=== PATIENT | female | born 1980 | race Caucasian/White ===

== ENCOUNTER 2017-08-13 18:58 | Emergency (ER) | payer BC, OTHER ==
[2017-08-13] MEDS ORDERED: methylPREDNISolone Sodium Succinate 125 MG/2 ML SDV IM ONE (19:15)
--- NOTE | 2017-08-13 19:38 | EDM.PDOC ---
ED HPI GENERAL MEDICAL PROBLEM - General Chief Complaint: Allergic Reaction Stated Complaint: ALLERGIC REACTION Time Seen by Provider: 08/13/17 19:11 Source of Information: Reports: Patient History Limitations: Reports: No Limitations - History of Present Illness INITIAL COMMENTS - FREE TEXT/NARRATIVE: HISTORY AND PHYSICAL: History of present illness: Patient is a 36-year-old female who presents to the emergency room today with complaints of an allergic reaction. She states earlier this morning she was informed that her face appeared red and swollen, upon looking in the mirror she noticed blotches/hives to her neck and lower face. She applied topical hydrocortisone cream which seemed to alleviate her symptoms. Especially 2 hours ago she started to feel the "hives coming back". And did take oral Benadryl. She does not recall coming into contact with any new materials, medications, creams/lotions or detergents. Review of systems: As per history of present illness and below otherwise all systems reviewed and negative. Past medical history: As per history of present illness and as reviewed below otherwise noncontributory. Surgical history: As per history of present illness and as reviewed below otherwise noncontributory. Social history: No reported history of drug or alcohol abuse. Family history: As per history of present illness and as reviewed below otherwise noncontributory. Physical exam: General: Well-developed and well-nourished 36-year-old female. Alert and oriented. Nontoxic appearing and in no acute distress. HEENT: Atraumatic, normocephalic, pupils equal and reactive bilaterally, negative for conjunctival pallor or scleral icterus, mucous membranes moist, throat clear, neck supple, nontender, trachea midline. No drooling or trismus noted. No meningeal signs Lungs: Clear to auscultation, breath sounds equal bilaterally, chest nontender. Heart: S1S2, regular rate and rhythm without overt murmur Abdomen: Soft, nondistended, nontender. Negative for masses or hepatosplenomegaly. Negative for costovertebral tenderness. Pelvis: Stable nontender. Genitourinary: Deferred. Rectal: Deferred. Skin: Intact, warm, dry. No lesions or rashes noted. Extremities: Atraumatic, negative for cords or calf pain. Neurovascular unremarkable. Neuro: Awake, alert, oriented. Cranial nerves II through XII unremarkable. Cerebellum unremarkable. Motor and sensory unremarkable throughout. Exam nonfocal. Notes: Currently her physical evaluation appears normal. There are no hives noted at this time. Lung sounds are clear and breathes easy and even. She does mention a pain that she has to her right phelps which she states started at approximately the same time her hives started this morning. She questions if there is any correlation between her phelps pain and the allergic reaction. We did discuss doing routine lab work to make sure that there is no abnormal values. She does request that these be performed. Solu-Medrol given IM while here and while waiting for labs to return. Medrol Dosepak Diagnostics: CBC, CMP Therapeutics: SoluMedrol Impression: Hives Plan: 1. Please take the steroid as directed. You may start this medication tomorrow. 2. Over the next 24-48 hours please take Benadryl and Zantac as directed. 3. Avoid hot showers as this may increase redness and itching. 4. Follow-up with your primary caregiver in the next 1-2 days. Return to the ED as needed and as discussed. Definitive disposition and diagnosis as appropriate pending reevaluation and review of above. Onset: Today Duration: Hour(s): Location: Reports: Head, Neck Head Pain Score (Numeric/FACES): 5 - Related Data Allergies Allergy/AdvReac Type Severity Reaction Status Date / Time sulfacetamide sodium Allergy Hives Verified 08/13/17 19:03 [From Sulfamide] Home Meds: Home Meds Levothyroxine 0.125 mcg PO DAILY 04/19/14 [History] Bcp 08/13/17 [History] Sertraline [Zoloft] 50 mg PO DAILY 08/13/17 [History] Past Medical History - Past Health History Medical/Surgical History: Denies Medical/Surgical History HEENT History: Reports: None Cardiovascular History: Reports: None Respiratory History: Reports: None Gastrointestinal History: Reports: None Genitourinary History: Reports: Renal Calculus SURVEY 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: Musculoskeletal History: Reports: None Neurological History: Reports: None Psychiatric History: Reports: Depression Endocrine/Metabolic History: Reports: Hypothyroidism Hematologic History: Reports: None Immunologic History: Reports: None Oncologic (Cancer) History: Reports: None Dermatologic History: Reports: None - Infectious Disease History Infectious Disease History: Reports: None - Past Surgical History HEENT Surgical History: Reports: Other (See Below) GI Surgical History: Reports: Other (See Below) Female Surgical History: Reports: Ureteral Stent, Other (See Below) Social & Family History - Family History Family Medical History: Noncontributory - Tobacco Use Smoking Status *Q: Never Smoker - Caffeine Use Caffeine Use: Reports: None - Recreational Drug Use Recreational Drug Use: No ED ROS ALLERGIC REACTION - Review of Systems Review Of Systems: ROS reveals no pertinent complaints other than HPI. ED EXAM GENERAL NO PERIP PULSE - Physical Exam Exam: See Below (See dictation) Course - Vital Signs Last Recorded V/S: Last Vital Signs Temp 97.6 F 08/13/17 19:06 Pulse 104 H 08/13/17 19:06 Resp 16 08/13/17 19:06 BP 142/90 H 08/13/17 19:06 Pulse Ox 97 08/13/17 19:06 - Orders/Labs/Meds Orders: Active Orders 24 hr Category Date Time Status COMPREHENSIVE METABOLIC PN,CMP [CHEM] Stat Lab 08/13/17 19:36 Received Labs: Laboratory Tests 08/13/17 Range/Units 19:36 WBC 7.90 (4.0-11.0) K/uL RBC 4.34 (4.30-5.90) M/uL Hgb 13.4 (12.0-16.0) g/dL Hct 39.7 (36.0-46.0) % MCV 91.5 (80.0-98.0) fL MCH 30.9 (27.0-32.0) pg MCHC 33.8 (31.0-37.0) g/dL RDW Std Deviation 42.8 (28.0-62.0) fl RDW Coeff of Carlitos 13 (11.0-15.0) % Plt Count 298 (150-400) K/uL MPV 10.40 (7.40-12.00) fL Neut % (Auto) 66.1 (48.0-80.0) % Lymph % (Auto) 24.3 (16.0-40.0) % [place] % (Auto) 7.2 (0.0-15.0) % Eos % (Auto) 1.9 (0.0-7.0) % Baso % (Auto) 0.5 (0.0-1.5) % Neut # (Auto) 5.2 (1.4-5.7) K/uL Lymph # (Auto) 1.9 (0.6-2.4) K/uL [place] # (Auto) 0.6 (0.0-0.8) K/uL Eos # (Auto) 0.2 (0.0-0.7) K/uL Baso # (Auto) 0.0 (0.0-0.1) K/uL Nucleated RBC % 0.0 /100WBC Nucleated RBCs # 0 K/uL Meds: Medications Discontinued Medications Generic Name Dose Route Start Last Admin Trade Name Freq PRN Reason Stop Dose Admin Methylprednisolone Sodium Succinate 125 mg 08/13/17 19:15 08/13/17 19:25 Solu-Medrol IM 08/13/17 19:16 125 mg ONETIME ONE Administration Departure - Departure Time of Disposition: 19:38 Disposition: Home, Self-Care 01 Clinical Impression: Hives - Discharge Information Instructions: Hives, [id number] Referrals: Evelina Mack DO [Primary Care Provider] - Additional Instructions: The following information is given to patients seen in the emergency department who are being discharged to home. This information is to outline your options for follow-up care. We provide all patients seen in our emergency department with a follow-up referral. The need for follow-up, as well as the timing and circumstances, are variable depending upon the specifics of your emergency department visit. If you don't have a primary care physician on staff, we will provide you with a referral. We always advise you to contact your personal physician following an emergency department visit to inform them of the circumstance of the visit and for follow-up with them and/or the need for any referrals to a consulting specialist. The emergency department will also refer you to a specialist when appropriate. This referral assures that you have the opportunity for follow-up care with a specialist. All of these measure are taken in an effort to provide you with optimal care, which includes your follow-up. Under all circumstances we always encourage you to contact your private physician who remains a resource for coordinating your care. When calling for follow-up care, please make the office aware that this follow-up is from your recent emergency room visit. If for any reason you are refused follow-up, please contact the [facility] Emergency Department at and asked to speak to the emergency department charge nurse. JACKI [facility] [address] [place] [id number] 1. Please take the steroid as directed. You may start this medication tomorrow. 2. Over the next 24-48 hours please take Benadryl and Zantac as directed. 3. Avoid hot showers as this may increase redness and itching. 4. Follow-up with your primary caregiver in the next 1-2 days. Return to the ED as needed and as discussed. - My Orders Last 24 Hours: My Active Orders 08/13/17 19:36 COMPREHENSIVE METABOLIC PN,CMP [CHEM] Stat - Assessment/Plan Last 24 Hours: My Active Orders 08/13/17 19:36 COMPREHENSIVE METABOLIC PN,CMP [CHEM] Stat
[2017-08-13 19:59] LABS: CHLORIDE,CL 107 mmol/L (98-107); SODIUM,NA 137 mmol/L (136-145)
[2017-08-13 20:34] VITALS: BP 135/92
== END 2017-08-13 20:10 | disposition home or self-care (01) ==
LOC: MW.ED 18:58
DX: L50.9 Urticaria, unspecified (principal); E03.9 Hypothyroidism, unspecified; Z79.899 Other long term (current) drug therapy; Z88.2 Allergy status to sulfonamides
CPT/HCPCS: 36415; 80053; 85025; 96372; 99283; J2930

== ENCOUNTER 2018-05-02 18:00 | Emergency (ER) | payer BC ==
--- NOTE | 2018-05-02 18:03 | EDM.PDOC ---
ED HPI GENERAL MEDICAL PROBLEM - General Stated Complaint: PT HAS CHEST PAINS Time Seen by Provider: 05/02/18 18:03 Source of Information: Reports: Patient History Limitations: Reports: No Limitations - History of Present Illness INITIAL COMMENTS - FREE TEXT/NARRATIVE: HISTORY AND PHYSICAL: History of present illness: Patient is a 37-year-old male who presents to the ED today with concerns of left -sided chest pain following a 3 week course of "cold". Patient states for the past 3 weeks she has been dealing with congestion, cough, and throat pain. She states that she has not gotten better but today has had a drastic increase in mid/left chest pain. She states the pain does not radiate and he main central and describes it as burning. States the pain is worse if she takes a big deep breath or coughs. She states that she does have a history of gastric bypass surgery 8 years ago and is currently having issues with severe anemia requiring iron transfusions. She states that she has a colonoscopy and an upper EGD scheduled for later this month to assess if she is having blood loss as a result of the surgery. She does take an oral control pill. Patient denies left arm pain, diaphoresis, history of blood clots, pain in her legs, shortness of breath, difficulties breathing, palpitations, history of cardiac or lung disorder, or all all other cardiac or respiratory symptoms. Patient denies fever, chills, nausea, vomiting, change in stools, blood in stool or urine, pain with urination. Patient further denies headache or visual changes. Patient has a history of gastric bypass surgery, obesity, and anemia. Review of systems: As per history of present illness and below otherwise all systems reviewed and negative. Past medical history: As per history of present illness and as reviewed below otherwise noncontributory. Surgical history: As per history of present illness and as reviewed below otherwise noncontributory. Social history: See social history for further information Family history: As per history of present illness and as reviewed below otherwise noncontributory. Physical exam: General: Patient is alert, orientated, and in no acute distress. She is lying comfortably on exam table. HEENT: Atraumatic, normocephalic, pupils equal and reactive bilaterally, negative for conjunctival pallor or scleral icterus, mucous membranes moist, TMs normal bilaterally, throat clear, neck supple, nontender, trachea midline. No drooling or trismus noted. No meningeal signs. No hot potato voice noted. Lungs: Clear to auscultation, breath sounds equal bilaterally. Patient has moderate pain to palpation of the xiphoid process into the cartilage of the 10th rib on the left side, reproducing patients pain. Heart: S1S2, regular rate and rhythm without overt murmur Abdomen: Soft, nondistended, nontender. Negative for masses or hepatosplenomegaly. Negative for costovertebral tenderness. Pelvis: Stable nontender. Genitourinary: Deferred. Rectal: Deferred. Skin: Intact, warm, dry. No lesions or rashes noted. Extremities: Atraumatic, negative for cords or calf pain. Neurovascular unremarkable. Neuro: Awake, alert, oriented. Cranial nerves II through XII unremarkable. Cerebellum unremarkable. Motor and sensory unremarkable throughout. Exam nonfocal. Notes: Elevated ddimer with follow up with a CTA. CT of the chest shows no evidence of acute PE. Mosaic attenuation nonspecific but can be seen in the small airway obstructive disease.Florence-en-Y bypass and possible fatty infiltration of the liver. There is a well circumcised nodule to the left lower lobe, consider follow-up in 6-12 months. This information was shared with the patient. She is currently out of the window for Tamiflu. Supportive care measures were reviewed and discussed. She voices understanding and is agreeable to plan of care. Denies any further questions or concerns at this time. Diagnostics: CBC, CMP, troponin, chest x-ray, ddimer, CTA Therapeutics: IV fluid, toradol Prescription: Tylenol #3 Impression: Influenza A thrombocytopenia Plan: 1. Standard contact precautions (covering mouth while coughing, avoid sharing drinking cups and eating utensils). Please make sure you're doing good handwashing as this is contagious. 2. Take the medications as prescribed. 3. Supportive care measures such as Tylenol and/or ibuprofen for pain and fever management.Encourage small frequent sips of fluids to prevent dehydration. 4. Follow-up with your primary care provider in the next 1-2 days. Follow up with platelets as well as lung finding with primary care. Return to the ED as needed and as discussed. Definitive disposition and diagnosis as appropriate pending reevaluation and review of above. Chest Pain Score (Numeric/FACES): 8 - Related Data Allergies Allergy/AdvReac Type Severity Reaction Status Date / Time sulfacetamide sodium Allergy Hives Verified 05/02/18 18:14 [From Sulfamide] Home Meds: Home Meds Levothyroxine 0.125 mcg PO DAILY 04/19/14 [History] Bcp 08/13/17 [History] Sertraline [Zoloft] 50 mg PO DAILY 08/13/17 [History] Past Medical History - Past Health History Medical/Surgical History: Denies Medical/Surgical History HEENT History: Reports: None Cardiovascular History: Reports: None Respiratory History: Reports: None Gastrointestinal History: Reports: None Genitourinary History: Reports: Renal Calculus 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: Musculoskeletal History: Reports: None Neurological History: Reports: None Psychiatric History: Reports: Depression Endocrine/Metabolic History: Reports: Hypothyroidism Hematologic History: Reports: None Immunologic History: Reports: None Oncologic (Cancer) History: Reports: None Dermatologic History: Reports: None - Infectious Disease History Infectious Disease History: Reports: None - Past Surgical History HEENT Surgical History: Reports: Other (See Below) GI Surgical History: Reports: Other (See Below) Female Surgical History: Reports: Ureteral Stent, Other (See Below) Social & Family History - Family History Family Medical History: Noncontributory - Caffeine Use Caffeine Use: Reports: None ED ROS GENERAL - Review of Systems Review Of Systems: ROS reveals no pertinent complaints other than HPI. ED EXAM, GENERAL - Physical Exam Exam: See Below (see HPI) Course - Vital Signs Last Recorded V/S: Last Vital Signs Temp 98.5 F 05/02/18 20:25 Pulse 94 05/02/18 20:25 Resp 18 05/02/18 20:25 BP 138/86 05/02/18 20:25 Pulse Ox 99 05/02/18 20:25 - Orders/Labs/Meds Labs: Laboratory Tests 05/02/18 05/02/18 05/02/18 Range/Units 18:17 18:19 18:19 WBC 5.45 (4.0-11.0) K/uL RBC 4.49 (4.30-5.90) M/uL Hgb 13.8 (12.0-16.0) g/dL Hct 40.4 (36.0-46.0) % MCV 90.0 (80.0-98.0) fL MCH 30.7 (27.0-32.0) pg MCHC 34.2 (31.0-37.0) g/dL RDW Std Deviation 43.0 (28.0-62.0) fl RDW Coeff of Carlitos 13 (11.0-15.0) % Plt Count 121 L (150-400) K/uL MPV 11.50 (7.40-12.00) fL Neut % (Auto) 81.9 H (48.0-80.0) % Lymph % (Auto) 7.9 L (16.0-40.0) % [place] % (Auto) 8.3 (0.0-15.0) % Eos % (Auto) 1.5 (0.0-7.0) % Baso % (Auto) 0.4 (0.0-1.5) % Neut # (Auto) 4.5 (1.4-5.7) K/uL Lymph # (Auto) 0.4 L (0.6-2.4) K/uL [place] # (Auto) 0.5 (0.0-0.8) K/uL Eos # (Auto) 0.1 (0.0-0.7) K/uL Baso # (Auto) 0.0 (0.0-0.1) K/uL Nucleated RBC % 0.0 /100WBC Nucleated RBCs # 0 K/uL D-Dimer, Quantitative 1.53 H (0.0-0.52) mg/LFEU Sodium 138 (136-145) mmol/L Potassium 4.0 (3.5-5.1) mmol/L Chloride 107 (98-107) mmol/L Carbon Dioxide 20.8 L (21.0-32.0) mmol/L BUN 6 L (7.0-18.0) mg/dL Creatinine 0.9 (0.6-1.0) mg/dL Est Cr Clr Drug Dosing 79.34 mL/min Estimated GFR (MDRD) > 60.0 ml/min Glucose 117 H (74-106) mg/dL Calcium 8.8 (8.5-10.1) mg/dL Total Bilirubin 0.3 (0.2-1.0) mg/dL AST 20 (15-37) IU/L ALT 21 (14-63) IU/L Alkaline Phosphatase 104 (46-116) U/L Troponin I < 0.050 (0.000-0.056) ng/mL Total Protein 6.8 (6.4-8.2) g/dL Albumin 2.9 L (3.4-5.0) g/dL Globulin 3.9 (2.6-4.0) g/dL Albumin/Globulin Ratio 0.7 L (0.9-1.6) HCG, Qual (NEG) 05/02/18 Range/Units 18:19 WBC (4.0-11.0) K/uL RBC (4.30-5.90) M/uL Hgb (12.0-16.0) g/dL Hct (36.0-46.0) % MCV (80.0-98.0) fL MCH (27.0-32.0) pg MCHC (31.0-37.0) g/dL RDW Std Deviation (28.0-62.0) fl RDW Coeff of Carlitos (11.0-15.0) % Plt Count (150-400) K/uL MPV (7.40-12.00) fL Neut % (Auto) (48.0-80.0) % Lymph % (Auto) (16.0-40.0) % [place] % (Auto) (0.0-15.0) % Eos % (Auto) (0.0-7.0) % Baso % (Auto) (0.0-1.5) % Neut # (Auto) (1.4-5.7) K/uL Lymph # (Auto) (0.6-2.4) K/uL [place] # (Auto) (0.0-0.8) K/uL Eos # (Auto) (0.0-0.7) K/uL Baso # (Auto) (0.0-0.1) K/uL Nucleated RBC % /100WBC Nucleated RBCs # K/uL D-Dimer, Quantitative (0.0-0.52) mg/LFEU Sodium (136-145) mmol/L Potassium (3.5-5.1) mmol/L Chloride (98-107) mmol/L Carbon Dioxide (21.0-32.0) mmol/L BUN (7.0-18.0) mg/dL Creatinine (0.6-1.0) mg/dL Est Cr Clr Drug Dosing mL/min Estimated GFR (MDRD) ml/min Glucose (74-106) mg/dL Calcium (8.5-10.1) mg/dL Total Bilirubin (0.2-1.0) mg/dL AST (15-37) IU/L ALT (14-63) IU/L Alkaline Phosphatase (46-116) U/L Troponin I (0.000-0.056) ng/mL Total Protein (6.4-8.2) g/dL Albumin (3.4-5.0) g/dL Globulin (2.6-4.0) g/dL Albumin/Globulin Ratio (0.9-1.6) HCG, Qual NEGATIVE (NEG) Meds: Medications Discontinued Medications Generic Name Dose Route Start Last Admin Trade Name Freq PRN Reason Stop Dose Admin Sodium Chloride 1,000 mls @ 999 mls/hr 05/02/18 18:06 05/02/18 18:36 Normal Saline IV 05/02/18 19:06 999 mls/hr STAT ONE Administration Iopamidol 50 ml 05/02/18 19:25 [id number] (76%) IV 05/02/18 19:26 ONETIME ONE Ketorolac Tromethamine 30 mg 05/02/18 18:42 05/02/18 18:46 Toradol IVPUSH 05/02/18 18:43 30 mg ONETIME ONE Administration Departure - Departure Time of Disposition: 20:13 Disposition: Home, Self-Care 01 Clinical Impression: Influenza A, Thrombocytopenia Instructions: Influenza, Adult, [id number] Referrals: PCP,None [Primary Care Provider] - Forms: ED Department Discharge Additional Instructions: The following information is given to patients seen in the emergency department who are being discharged to home. This information is to outline your options for follow-up care. We provide all patients seen in our emergency department with a follow-up referral. The need for follow-up, as well as the timing and circumstances, are variable depending upon the specifics of your emergency department visit. If you don't have a primary care physician on staff, we will provide you with a referral. We always advise you to contact your personal physician following an emergency department visit to inform them of the circumstance of the visit and for follow-up with them and/or the need for any referrals to a consulting specialist. The emergency department will also refer you to a specialist when appropriate. This referral assures that you have the opportunity for follow-up care with a specialist. All of these measure are taken in an effort to provide you with optimal care, which includes your follow-up. Under all circumstances we always encourage you to contact your private physician who remains a resource for coordinating your care. When calling for follow-up care, please make the office aware that this follow-up is from your recent emergency room visit. If for any reason you are refused follow-up, please contact the [facility] Emergency Department at and asked to speak to the emergency department charge nurse. [facility] [address] [place] [id number] [id number] 1. Standard contact precautions (covering mouth while coughing, avoid sharing drinking cups and eating utensils). Please make sure you're doing good handwashing as this is contagious. 2. Take the medications as prescribed. 3. Supportive care measures such as Tylenol and/or ibuprofen for pain and fever management.Encourage small frequent sips of fluids to prevent dehydration. 4. Follow-up with your primary care provider in the next 1-2 days. Follow up with platelets as well as lung finding with primary care. Return to the ED as needed and as discussed.
[2018-05-02] MEDS ORDERED: Sodium Chloride 0.9% 1,000 ML IV ONE (18:06)
[2018-05-02] MEDS ORDERED: Ketorolac 30 MG/ML SDV IVPUSH ONE (18:42)
[2018-05-02 18:54] LABS: CHLORIDE,CL 107 mmol/L (98-107); SODIUM,NA 138 mmol/L (136-145)
[2018-05-02] MEDS ORDERED: Iopamidol 755 MG/ML 50 ML Bottle IV ONE (19:25)
--- NOTE | 2018-05-02 19:28 | CR ---
INDICATION: Pain. Shortness breath. TECHNIQUE: Two views. IMPRESSION: Thin line of atelectasis or scar parahilar right midlung. Lungs otherwise are clear. Pulmonary vascularity and cardiomediastinal silhouette are normal. Slight elevation right hemidiaphragm. Dictated by Fermin Fontanez MD @ May 02 2018 7:24PM Signed by Dr. Fermin Fontanez @ May 02 2018 7:25PM
--- NOTE | 2018-05-02 20:03 | CT ---
INDICATION: Short of breath with elevated D-dimer TECHNIQUE : CT scan of the chest. CTA PE protocol. IV contrast. 50 cc FINDINGS: Pulmonary arteries:No pulmonary artery filling defects. Heart/mediastinum:No adenopathy or pericardial fluid. Lungs and pleura: Lungs: Mosaic attenuation. Elongated nodular area of possible pleural thickening posterior to the left lower lobe versus parenchymal nodule. Long axis 8 millimeters. Abdomen/skeletal: Florence-en-Y gastric bypass. The liver is enlarged. No skeletal abnormality IMPRESSION: 1. No signs for acute pulmonary embolus. 2. Mosaic attenuation nonspecific but can be seen in small airways obstructive disease. 3. Florence-en-Y bypass and possible fatty infiltration of the liver. 4. Pleural or parenchymal well-circumscribed area of nodularity posterior left lower lobe consider follow-up to evaluate stability in 6-12 months. Please note that all CT scans at this facility use dose modulation, iterative reconstruction, and/or weight-based dosing when appropriate to reduce radiation dose to as low as reasonably achievable. Dictated by Agusto Valdez MD @ May 02 2018 8:02PM Signed by Dr. Agusto Valdez @ May 02 2018 8:02PM
[2018-05-02 20:40] VITALS: BP 138/86
== END 2018-05-02 20:25 | disposition home or self-care (01) ==
LOC: MW.ED 18:00
DX: J10.1 Influenza due to other identified influenza virus with other respiratory manifestations (principal); E03.9 Hypothyroidism, unspecified; D69.6 Thrombocytopenia, unspecified; Z79.899 Other long term (current) drug therapy
CPT/HCPCS: 36415; 71046; 71275; 80053; 84484; 84703; 85025; 85379; 87804; 93005; 96361; 96374; 99285; J1885; J7040

== ENCOUNTER 2018-05-12 19:28 | Emergency (ER) | payer BC ==
[2018-05-12] MEDS ORDERED: Ondansetron 4 MG/2 ML SDV IVPUSH ONE ×2 (19:31→21:46)
[2018-05-12] MEDS ORDERED: Sodium Chloride 0.9% 1,000 ML IV ONE (19:31)
--- NOTE | 2018-05-12 19:39 | EDM.PDOC ---
<Trenton Alves - Last Filed: 05/12/18 23:49> ED HPI GENERAL MEDICAL PROBLEM - General Chief Complaint: General Stated Complaint: VOMITING, DIZZINESS, COULDNT STAND Time Seen by Provider: 05/12/18 19:29 - History of Present Illness INITIAL COMMENTS - FREE TEXT/NARRATIVE: I've seen and examined the patient and agree with the above Patient has had a chiropractic adjustment nausea vomiting and dizziness which ensued afterwards her patient There is clear positional component she is better with lying down with sitting up and had tilt to the left symptoms are worsened Currently no fever vomiting chills sweats no chest pain shortness breath headache or palpitation no bowel or urine symptoms GEN T grossly within normal limits Chest clear CV regular Abdomen benign Extremities full range of motion strength 5 out of 5 no edema 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[employer] PASTRY alert nonfocal CT head no contrast no acute findings per radiology Plain film x-ray cervical spine no acute process per radiology Lab as below Impression Benign positional vertigo Therapeutics scop transdermal Definitive disposition and diagnosis as appropriate pending reevaluation and review of above - Related Data Allergies Allergy/AdvReac Type Severity Reaction Status Date / Time sulfacetamide sodium Allergy Hives Verified 05/12/18 19:32 [From Sulfamide] Home Meds: Home Meds Levothyroxine 0.137 mcg PO DAILY 04/19/14 [History] Bcp 08/13/17 [History] Sertraline [Zoloft] 150 mg PO DAILY 08/13/17 [History] ED ROS GENERAL - Review of Systems Review Of Systems: See Below ED EXAM, GENERAL - Physical Exam Exam: See Below Course - Vital Signs Last Recorded V/S: Last Vital Signs Temp 96.0 F 05/12/18 19:30 Pulse 92 05/12/18 23:47 Resp 17 05/12/18 23:47 BP 149/99 H 05/12/18 23:47 Pulse Ox 100 05/12/18 23:47 - Orders/Labs/Meds Labs: Laboratory Tests 05/12/18 05/12/18 05/12/18 Range/Units 19:25 19:25 20:25 WBC 8.20 (4.0-11.0) K/uL RBC 4.77 (4.30-5.90) M/uL Hgb 14.5 (12.0-16.0) g/dL Hct 42.2 (36.0-46.0) % MCV 88.5 (80.0-98.0) fL MCH 30.4 (27.0-32.0) pg MCHC 34.4 (31.0-37.0) g/dL RDW Std Deviation 41.2 (28.0-62.0) fl RDW Coeff of [place]itos 13 (11.0-15.0) % Plt Count 331 (150-400) K/uL MPV 10.10 (7.40-12.00) fL Neut % (Auto) 55.4 (48.0-80.0) % Lymph % (Auto) 35.6 (16.0-40.0) % [place] % (Auto) 6.3 (0.0-15.0) % Eos % (Auto) 2.1 (0.0-7.0) % Baso % (Auto) 0.6 (0.0-1.5) % Neut # (Auto) 4.5 (1.4-5.7) K/uL Lymph # (Auto) 2.9 H (0.6-2.4) K/uL [place] # (Auto) 0.5 (0.0-0.8) K/uL Eos # (Auto) 0.2 (0.0-0.7) K/uL Baso # (Auto) 0.1 (0.0-0.1) K/uL Nucleated RBC % 0.0 /100WBC Nucleated RBCs # 0 K/uL Sodium 139 (136-145) mmol/L Potassium 3.9 (3.5-5.1) mmol/L Chloride 105 (98-107) mmol/L Carbon Dioxide 20.8 L (21.0-32.0) mmol/L BUN 14 (7.0-18.0) mg/dL Creatinine 0.9 (0.6-1.0) mg/dL Est Cr Clr Drug Dosing 79.34 mL/min Estimated GFR (MDRD) > 60.0 ml/min Glucose 156 H (74-106) mg/dL Calcium 9.8 (8.5-10.1) mg/dL Total Bilirubin 0.3 (0.2-1.0) mg/dL AST 21 (15-37) IU/L ALT 34 (14-63) IU/L Alkaline Phosphatase 105 (46-116) U/L Total Protein 7.4 (6.4-8.2) g/dL Albumin 3.7 (3.4-5.0) g/dL Globulin 3.7 (2.6-4.0) g/dL Albumin/Globulin Ratio 1.0 (0.9-1.6) Urine Color YELLOW Urine Appearance SLT CLOUDY Urine pH 6.0 (5.0-8.0) Ur Specific [place] >= 1.030 (1.001-1.035) Urine Protein NEGATIVE (NEGATIVE) mg/dL Urine Glucose (UA) NEGATIVE (NEGATIVE) mg/dL Urine Ketones TRACE H (NEGATIVE) mg/dL Urine Occult Blood NEGATIVE (NEGATIVE) Urine Nitrite NEGATIVE (NEGATIVE) Urine Bilirubin NEGATIVE (NEGATIVE) Urine Urobilinogen 0.2 (<2.0) EU/dL Ur Leukocyte Esterase NEGATIVE (NEGATIVE) Urine HCG, Qual (NEGATIVE) 05/12/18 Range/Units 20:25 WBC (4.0-11.0) K/uL RBC (4.30-5.90) M/uL Hgb (12.0-16.0) g/dL Hct (36.0-46.0) % MCV (80.0-98.0) fL MCH (27.0-32.0) pg MCHC (31.0-37.0) g/dL RDW Std Deviation (28.0-62.0) fl RDW Coeff of [place] (11.0-15.0) % Plt Count (150-400) K/uL MPV (7.40-12.00) fL Neut % (Auto) (48.0-80.0) % Lymph % (Auto) (16.0-40.0) % [place] % (Auto) (0.0-15.0) % Eos % (Auto) (0.0-7.0) % Baso % (Auto) (0.0-1.5) % Neut # (Auto) (1.4-5.7) K/uL Lymph # (Auto) (0.6-2.4) K/uL [place] # (Auto) (0.0-0.8) K/uL Eos # (Auto) (0.0-0.7) K/uL Baso # (Auto) (0.0-0.1) K/uL Nucleated RBC % /100WBC Nucleated RBCs # K/uL Sodium (136-145) mmol/L Potassium (3.5-5.1) mmol/L Chloride (98-107) mmol/L Carbon Dioxide (21.0-32.0) mmol/L BUN (7.0-18.0) mg/dL Creatinine (0.6-1.0) mg/dL Est Cr Clr Drug Dosing mL/min Estimated GFR (MDRD) ml/min Glucose (74-106) mg/dL Calcium (8.5-10.1) mg/dL Total Bilirubin (0.2-1.0) mg/dL AST (15-37) IU/L ALT (14-63) IU/L Alkaline Phosphatase (46-116) U/L Total Protein (6.4-8.2) g/dL Albumin (3.4-5.0) g/dL Globulin (2.6-4.0) g/dL Albumin/Globulin Ratio (0.9-1.6) Urine Color Urine Appearance Urine pH (5.0-8.0) Ur Specific [place] (1.001-1.035) Urine Protein (NEGATIVE) mg/dL Urine Glucose (UA) (NEGATIVE) mg/dL Urine Ketones (NEGATIVE) mg/dL Urine Occult Blood (NEGATIVE) Urine Nitrite (NEGATIVE) Urine Bilirubin (NEGATIVE) Urine Urobilinogen (<2.0) EU/dL Ur Leukocyte Esterase (NEGATIVE) Urine HCG, Qual NEGATIVE (NEGATIVE) Meds: Medications Discontinued Medications Generic Name Dose Route Start Last Admin Trade Name Freq PRN Reason Stop Dose Admin Diazepam 5 mg 05/12/18 19:32 05/12/18 19:43 Valium IVPUSH 05/12/18 19:33 5 mg ONETIME ONE Administration Diazepam 5 mg 05/12/18 21:40 05/12/18 21:51 Valium IVPUSH 05/12/18 21:41 Not Given ONETIME ONE Sodium Chloride 1,000 mls @ 999 mls/hr 05/12/18 19:31 05/12/18 19:41 Normal Saline IV 05/12/18 20:31 999 mls/hr STAT ONE Administration Meclizine HCl 25 mg 05/12/18 20:36 05/12/18 21:23 Antivert PO 05/12/18 20:37 25 mg ONETIME ONE Administration Ondansetron HCl 4 mg 05/12/18 19:31 05/12/18 19:41 Zofran IVPUSH 05/12/18 19:32 4 mg ONETIME ONE Administration Ondansetron HCl 4 mg 05/12/18 21:46 05/12/18 21:51 Zofran IVPUSH 05/12/18 21:47 4 mg ONETIME ONE Administration Departure - Departure Time of Disposition: 23:51 Disposition: Home, Self-Care 01 Condition: Good Clinical Impression: Benign positional vertigo - Discharge Information Instructions: Benign Positional Vertigo Referrals: PCP,Unknown [Primary Care Provider] - Forms: ED Department Discharge Additional Instructions: The following information is given to patients seen in the emergency department who are being discharged to home. This information is to outline your options for follow-up care. We provide all patients seen in our emergency department with a follow-up referral. The need for follow-up, as well as the timing and circumstances, are variable depending upon the specifics of your emergency department visit. If you don't have a primary care physician on staff, we will provide you with a referral. We always advise you to contact your personal physician following an emergency department visit to inform them of the circumstance of the visit and for follow-up with them and/or the need for any referrals to a consulting specialist. The emergency department will also refer you to a specialist when appropriate. This referral assures that you have the opportunity for follow-up care with a specialist. All of these measure are taken in an effort to provide you with optimal care, which includes your follow-up. Under all circumstances we always encourage you to contact your private physician who remains a resource for coordinating your care. When calling for follow-up care, please make the office aware that this follow-up is from your recent emergency room visit. If for any reason you are refused follow-up, please contact the [facility] emergency department at and asked to speak to the emergency department charge nurse. <Darwin Donovan E - Last Filed: 05/13/18 11:10> ED HPI GENERAL MEDICAL PROBLEM - General Source of Information: Reports: Patient History Limitations: Reports: No Limitations - History of Present Illness INITIAL COMMENTS - FREE TEXT/NARRATIVE: HISTORY AND PHYSICAL: History of present illness: Patient is a 37-year-old female who presents to the emergency room today with complaints of nausea, vomiting and dizziness. She states today she had a chiropractic appointment where she had a routine adjustment and soon after felt her symptoms. She denies any numbness or tingling to her distal extremities. Denies any urinary or fecal incontinence. She's been ambulatory without any difficulty or deficits. Patient prefers to rest with her eyes closed as she states she is dizzy when she is looking around. She denies any visual changes, neck pain, numbness or tingling to her distal extremities. She denies any fever , chills, chest pain, shortness of breath or cough. Denies any abdominal pain, diarrhea, constipation or dysuria. Denies any chance of . She had been diagnosed with Influenza A approximately 10 days ago, but states she has felt well for the past week. Review of systems: As per history of present illness and below otherwise all systems reviewed and negative. Past medical history: As per history of present illness and as reviewed below otherwise noncontributory. Surgical history: As per history of present illness and as reviewed below otherwise noncontributory. Social history: See social history for further information Family history: As per history of present illness and as reviewed below otherwise noncontributory. Physical exam: General: Well-developed and well-nourished 37-year-old female. Alert and oriented. Nontoxic appearing and in no acute distress. HEENT: Atraumatic, normocephalic, pupils equal and reactive bilaterally, negative for conjunctival pallor or scleral icterus, no nystagmus, mucous membranes moist, TMs normal bilaterally, throat clear, neck supple, nontender, trachea midline. No drooling or trismus noted. No meningeal signs. No hot potato voice noted. Lungs: Clear to auscultation, breath sounds equal bilaterally, chest nontender. Heart: S1S2, regular rate and rhythm without overt murmur Abdomen: Soft, nondistended, nontender. Negative for masses or hepatosplenomegaly. Negative for costovertebral tenderness. Pelvis: Stable nontender. Genitourinary: Deferred. Rectal: Deferred. Skin: Intact, warm, dry. No lesions or rashes noted. Extremities: Atraumatic, negative for cords or calf pain. Neurovascular unremarkable. C-spine/back: No pinpoint vertebral tenderness upon palpation. No crepitus, step -offs or obvious deformities. Neuro: Awake, alert, oriented. Cranial nerves II through XII unremarkable. Cerebellum unremarkable. Motor and sensory unremarkable throughout. Exam nonfocal. Notes: Lab work is unremarkable. CT of the head shows no acute findings. Patient does have a ride home. VSS. Currently we do not have any beds available as we are at maximum capacity. Patient was offered transfer for further evaluation of symptoms, she declines. Diagnostics: CBC, CMP, UA, HCGU, CT head, c-spine xray Therapeutics: IV Valium, Zofran, IV fluid, meclizine by mouth Impression: Vertigo Plan: 1. No driving for the remainder of the day as the medications you had in the ER may cause drowsiness. 2. Drink plenty of fluids. Tylenol and/or ibuprofen as needed for pain management. 3. Please follow-up with your primary caregiver in the next 1-2 days. Return to the ED as needed and as discussed. Definitive disposition and diagnosis as appropriate pending reevaluation and review of above. Onset: Today Duration: Hour(s): Neck Pain Score (Numeric/FACES): 10 Past Medical History - Past Health History Medical/Surgical History: Denies Medical/Surgical History HEENT History: Reports: None Cardiovascular History: Reports: None Other Cardiovascular History: pt states having a small valve problem Respiratory History: Reports: None Gastrointestinal History: Reports: None Genitourinary History: Reports: Renal Calculus [employer] History: Reports: Musculoskeletal History: Reports: None Neurological History: Reports: None Psychiatric History: Reports: Depression Endocrine/Metabolic History: Reports: Hypothyroidism Hematologic History: Reports: None Immunologic History: Reports: None Oncologic (Cancer) History: Reports: None Dermatologic History: Reports: None - Infectious Disease History Infectious Disease History: Reports: None - Past Surgical History HEENT Surgical History: Reports: Other (See Below) GI Surgical History: Reports: Other (See Below) Female Surgical History: Reports: Ureteral Stent, Other (See Below) Social & Family History - Family History Family Medical History: Noncontributory - Caffeine Use Caffeine Use: Reports: None ED ROS GENERAL - Review of Systems Review Of Systems: ROS reveals no pertinent complaints other than HPI. ED EXAM, GENERAL - Physical Exam Exam: See Below (See dictation) Course - Orders/Labs/Meds Labs: Laboratory Tests 05/12/18 05/12/18 05/12/18 Range/Units 19:25 19:25 20:25 WBC 8.20 (4.0-11.0) K/uL RBC 4.77 (4.30-5.90) M/uL Hgb 14.5 (12.0-16.0) g/dL Hct 42.2 (36.0-46.0) % MCV 88.5 (80.0-98.0) fL MCH 30.4 (27.0-32.0) pg MCHC 34.4 (31.0-37.0) g/dL RDW Std Deviation 41.2 (28.0-62.0) fl RDW Coeff of [place] 13 (11.0-15.0) % Plt Count 331 (150-400) K/uL MPV 10.10 (7.40-12.00) fL Neut % (Auto) 55.4 (48.0-80.0) % Lymph % (Auto) 35.6 (16.0-40.0) % [place] % (Auto) 6.3 (0.0-15.0) % Eos % (Auto) 2.1 (0.0-7.0) % Baso % (Auto) 0.6 (0.0-1.5) % Neut # (Auto) 4.5 (1.4-5.7) K/uL Lymph # (Auto) 2.9 H (0.6-2.4) K/uL [place] # (Auto) 0.5 (0.0-0.8) K/uL Eos # (Auto) 0.2 (0.0-0.7) K/uL Baso # (Auto) 0.1 (0.0-0.1) K/uL Nucleated RBC % 0.0 /100WBC Nucleated RBCs # 0 K/uL Sodium 139 (136-145) mmol/L Potassium 3.9 (3.5-5.1) mmol/L Chloride 105 (98-107) mmol/L Carbon Dioxide 20.8 L (21.0-32.0) mmol/L BUN 14 (7.0-18.0) mg/dL Creatinine 0.9 (0.6-1.0) mg/dL Est Cr Clr Drug Dosing 79.34 mL/min Estimated GFR (MDRD) > 60.0 ml/min Glucose 156 H (74-106) mg/dL Calcium 9.8 (8.5-10.1) mg/dL Total Bilirubin 0.3 (0.2-1.0) mg/dL AST 21 (15-37) IU/L ALT 34 (14-63) IU/L Alkaline Phosphatase 105 (46-116) U/L Total Protein 7.4 (6.4-8.2) g/dL Albumin 3.7 (3.4-5.0) g/dL Globulin 3.7 (2.6-4.0) g/dL Albumin/Globulin Ratio 1.0 (0.9-1.6) Urine Color YELLOW Urine Appearance SLT CLOUDY Urine pH 6.0 (5.0-8.0) Ur Specific [place] >= 1.030 (1.001-1.035) Urine Protein NEGATIVE (NEGATIVE) mg/dL Urine Glucose (UA) NEGATIVE (NEGATIVE) mg/dL Urine Ketones TRACE H (NEGATIVE) mg/dL Urine Occult Blood NEGATIVE (NEGATIVE) Urine Nitrite NEGATIVE (NEGATIVE) Urine Bilirubin NEGATIVE (NEGATIVE) Urine Urobilinogen 0.2 (<2.0) EU/dL Ur Leukocyte Esterase NEGATIVE (NEGATIVE) Urine HCG, Qual (NEGATIVE) 05/12/18 Range/Units 20:25 WBC (4.0-11.0) K/uL RBC (4.30-5.90) M/uL Hgb (12.0-16.0) g/dL Hct (36.0-46.0) % MCV (80.0-98.0) fL MCH (27.0-32.0) pg MCHC (31.0-37.0) g/dL RDW Std Deviation (28.0-62.0) fl RDW Coeff of [place] (11.0-15.0) % Plt Count (150-400) K/uL MPV (7.40-12.00) fL Neut % (Auto) (48.0-80.0) % Lymph % (Auto) (16.0-40.0) % [place] % (Auto) (0.0-15.0) % Eos % (Auto) (0.0-7.0) % Baso % (Auto) (0.0-1.5) % Neut # (Auto) (1.4-5.7) K/uL Lymph # (Auto) (0.6-2.4) K/uL [place] # (Auto) (0.0-0.8) K/uL Eos # (Auto) (0.0-0.7) K/uL Baso # (Auto) (0.0-0.1) K/uL Nucleated RBC % /100WBC Nucleated RBCs # K/uL Sodium (136-145) mmol/L Potassium (3.5-5.1) mmol/L Chloride (98-107) mmol/L Carbon Dioxide (21.0-32.0) mmol/L BUN (7.0-18.0) mg/dL Creatinine (0.6-1.0) mg/dL Est Cr Clr Drug Dosing mL/min Estimated GFR (MDRD) ml/min Glucose (74-106) mg/dL Calcium (8.5-10.1) mg/dL Total Bilirubin (0.2-1.0) mg/dL AST (15-37) IU/L ALT (14-63) IU/L Alkaline Phosphatase (46-116) U/L Total Protein (6.4-8.2) g/dL Albumin (3.4-5.0) g/dL Globulin (2.6-4.0) g/dL Albumin/Globulin Ratio (0.9-1.6) Urine Color Urine Appearance Urine pH (5.0-8.0) Ur Specific [place] (1.001-1.035) Urine Protein (NEGATIVE) mg/dL Urine Glucose (UA) (NEGATIVE) mg/dL Urine Ketones (NEGATIVE) mg/dL Urine Occult Blood (NEGATIVE) Urine Nitrite (NEGATIVE) Urine Bilirubin (NEGATIVE) Urine Urobilinogen (<2.0) EU/dL Ur Leukocyte Esterase (NEGATIVE) Urine HCG, Qual NEGATIVE (NEGATIVE)
[2018-05-12 20:10] LABS: CHLORIDE,CL 105 mmol/L (98-107); SODIUM,NA 139 mmol/L (136-145)
[2018-05-12] MEDS ORDERED: Meclizine 25 MG Tab PO ONE (20:36)
--- NOTE | 2018-05-12 21:48 | CT ---
INDICATION: Dizziness TECHNIQUE: CT head without contrast. COMPARISON: None available FINDINGS: There is mild artifact near the skullbase. The ventricles and sulci are within normal limits for the patient`s age. There is no mass effect or midline shift. There is no loss of longo-white differentiation. There is no evidence of a gross acute intracranial hemorrhage. No acute calvarial fracture is seen. The visualized paranasal sinuses and mastoid air cells are clear. The visualized orbits are within normal limits. IMPRESSION: No evidence of a gross acute intracranial hemorrhage, mass effect or loss of longo-white differentiation. Dictated by Bryan Tellez MD @ 05/12/2018 9:46:53 PM Please note that all CT scans at this facility use dose modulation, iterative reconstruction, and/or weight-based dosing when appropriate to reduce radiation dose to as low as reasonably achievable. Dictated by: Bryan Tellez MD @ 05/12/2018 21:47:01 (Electronically Signed)
--- NOTE | 2018-05-12 23:10 | CR ---
INDICATION: Cervical spine pain TECHNIQUE: Cervical spine radiograph 4 views COMPARISON: None FINDINGS: Bone: No acute fractures or aggressive bone lesions are identified. Alignment is normal. Disc: The disc spaces are unremarkable in appearance. The facet joints are unremarkable. Soft tissue: Unremarkable. No radiopaque foreign bodies are seen. Miscellaneous: The swimmer`s view is moderately limited by patient rotation. The craniocervical junction is obscured by metallic earrings. The spinous processes are obscured by overlying hair artifact on the lateral exam. IMPRESSIONS: 1. No acute osseous injuries or abnormalities are noted. 2. The swimmer`s view is moderately limited by patient rotation. The craniocervical junction is obscured by metallic earrings. The spinous processes are obscured by overlying hair artifact on the lateral exam. Dictated by Mateus Oleary MD @ 05/12/2018 11:08:49 PM Dictated by: Mateus Oleary MD @ 05/12/2018 23:08:54 (Electronically Signed)
[2018-05-12 23:48] VITALS: BP 149/99
== END 2018-05-13 01:00 | disposition home or self-care (01) ==
LOC: MW.ED 19:28
DX: H81.12 Benign paroxysmal vertigo, left ear (principal); F32.9 Major depressive disorder, single episode, unspecified; E03.9 Hypothyroidism, unspecified; Z88.2 Allergy status to sulfonamides; Z79.899 Other long term (current) drug therapy
CPT/HCPCS: 36415; 70450; 72040; 80053; 81003; 81025; 85025; 96361; 96374; 96375; 96376; 99284; A9270; J2405; J3360; J7040

== ENCOUNTER 2019-05-27 12:21 | Emergency (ER) | payer OTHER ==
[2019-05-27] MEDS ORDERED: Sodium Chloride 0.9% 10 ML Syringe FLUSH PRN (12:51)
[2019-05-27] MEDS ORDERED: Sodium Chloride 0.9% 2.5 ML Syringe FLUSH PRN (12:51)
--- NOTE | 2019-05-27 13:14 | EDM.PDOC ---
ED HPI GENERAL MEDICAL PROBLEM - General Chief Complaint: General Stated Complaint: HEALING COMPLICATIONS FROM SURGERY Time Seen by Provider: 05/27/19 12:39 Source of Information: Reports: Patient History Limitations: Reports: No Limitations - History of Present Illness INITIAL COMMENTS - FREE TEXT/NARRATIVE: HISTORY AND PHYSICAL: History of present illness: Patient is a 38-year-old female who presents to the emergency room post plastic surgery with wound dehiscence. Approximately 3 weeks ago the patient had multiple plastic surgeries performed in [place]. She states that she did stay in [place] several days post surgery for reevaluation and drain removal. Since returning home she has been on bed rest and denies any physical exertion or performing any activity she should not be. She states she noticed some wound dehiscence to bilateral midtorso/midaxillary line and to her suprapubic incision site. She is concerned that she may need the area "re-stitched" to close the incision site. Patient denies any fever, chills, headache, change in vision, syncope or near syncope. Denies any chest pain, back pain, shortness of breath or cough. Denies any abdominal pain, nausea, vomiting, diarrhea, constipation or dysuria. Has not noted any blood in urine or stool. Patient has been eating and drinking appropriately. Review of systems: As per history of present illness and below otherwise all systems reviewed and negative. Past medical history: As per history of present illness and as reviewed below otherwise noncontributory. Surgical history: As per history of present illness and as reviewed below otherwise noncontributory. Social history: See social history for further information Family history: As per history of present illness and as reviewed below otherwise noncontributory. Physical exam: General: Well-developed and well-nourished 38-year-old female. Alert and oriented. Nontoxic-appearing and in no acute distress. HEENT: Atraumatic, normocephalic, pupils equal and reactive bilaterally, negative for conjunctival pallor or scleral icterus, mucous membranes moist, TMs normal bilaterally, throat clear, neck supple, nontender, trachea midline. No drooling or trismus noted. No meningeal signs. No hot potato voice noted. Lungs: Clear to auscultation, breath sounds equal bilaterally, chest nontender. Heart: S1S2, regular rate and rhythm without overt murmur Abdomen: Soft, nondistended, nontender. SEE SKIN for details. Wears an abdominal binder for support. Negative for masses or hepatosplenomegaly. Negative for costovertebral tenderness. Pelvis: Stable nontender. SEE SKIN Skin: Patient has an intact incision site that goes all the way around the upper torso. Includes breast lift and implant incision site bilateral. Non- fluctuant and non-indurated. Bilateral brachioplasty: Incision site intact, nonindurated and nonfluctuant. Right midaxillary incision: small site of wound dehiscence, macerated healing tissue. Approx 3cm x 1.5 cm Left midaxillary incision: small site of wound dehiscence, macerated healing tissue. Approx 2cm x 1.5 cm. Lower body lift incision that goes all the way around the lower torso (circumferential) with wound dehiscence in the center (below the umbilicus), approximately 2 cm in diameter with a depth of 5 cm. Appears to have macerated healing tissue surrounding. No surrounding erythema. Extremities: SEE SKIN, moves all extremities per self without difficulty or deficits, negative for cords or calf pain. Neurovascular unremarkable. Neuro: Awake, alert, oriented. Cranial nerves II through XII unremarkable. Cerebellum unremarkable. Motor and sensory unremarkable throughout. Exam nonfocal. Notes: Lab work shows no acute findings; other than the wound dehiscence it does not appear that there is any cellulitis associated. I did initially attempt to contact Dr. Michelle but states he did not want to be involved in this case and referred me to plastics. Dr Lorna Alberts, [facility], was consulted. The patient actually has an appointment with her for June 13. I discussed this case with her and she would like the patient to perform wet-to-dry dressings 2-3 times daily. Suggest that can put her on Keflex, per patient request. This information was shared with the patient. We did do a demonstration/education on dressing changes. Dr. Alberts's nurse will be calling the patient this afternoon to check in with her and possibly expedite her appointment. Patient's vital signs remained stable. Supportive care measures were reviewed and discussed. Voices understanding and is agreeable to plan of care. Denies any further questions or concerns at this time. Diagnostics: CBC, CMP, wound culture Therapeutics: Wound care and education Prescription: Mobile, Keflex Impression: Wound dehiscence Plan: 1. Keep the wounds clean and dry. Wash gently 1-2 x daily with gentle soap and water. Keep the armpit dressings on during the day; may leave open at night over the next few days. You will need to do "wet to dry" dressings to the low abdominal open wound twice daily until told otherwise by Dr Alberts. Continue to monitor the site for improvement. 2. Tylenol and/or Ibuprofen as needed for pain. 3. Dr Alberts's office should be calling you to follow up; otherwise keep your appointment for June 13. 4. Return to the ED as needed as discussed. Definitive disposition and diagnosis as appropriate pending reevaluation and review of above. lower abdomen & lower back Pain Score (Numeric/FACES): 8 - Related Data Allergies Allergy/AdvReac Type Severity Reaction Status Date / Time sulfacetamide sodium Allergy Hives Verified 05/12/18 19:32 [From Sulfamide] Home Meds: Home Meds Levothyroxine 150 mcg PO DAILY 04/19/14 [History] Acetaminophen/HYDROcodone [Mobile 325-5 MG] 1 dose PO Q4H #20 tablet 05/27/19 [Rx ] Vilazodone [Viibryd] 40 mg PO DAILY 05/27/19 [History] cephALEXin [Keflex] 500 mg PO BID 7 Days #14 cap 05/27/19 [Rx] Past Medical History - Past Health History Medical/Surgical History: Denies Medical/Surgical History HEENT History: Reports: None Cardiovascular History: Reports: None Other Cardiovascular History: pt states having a small valve problem Respiratory History: Reports: None Other Respiratory History: Pt state she had a CT for "spots" on her lungs Gastrointestinal History: Reports: None Genitourinary History: Reports: Renal Calculus ROTARY DRIER History: Reports: Musculoskeletal History: Reports: None Neurological History: Reports: None Psychiatric History: Reports: Depression Endocrine/Metabolic History: Reports: Hypothyroidism Hematologic History: Reports: None Immunologic History: Reports: None Oncologic (Cancer) History: Reports: None Dermatologic History: Reports: None - Infectious Disease History Infectious Disease History: Reports: None - Past Surgical History HEENT Surgical History: Reports: Other (See Below) GI Surgical History: Reports: Other (See Below) Female Surgical History: Reports: Breast Implant, Breast Reconstruction, Ureteral Stent, Other (See Below) Other Female Surgeries/Procedures: circular tummy tuck Social & Family History - Family History Family Medical History: Noncontributory - Tobacco Use Smoking Status *Q: Never Smoker - Caffeine Use Caffeine Use: Reports: None - Recreational Drug Use Recreational Drug Use: No ED ROS GENERAL - Review of Systems Review Of Systems: Comprehensive ROS is negative, except as noted in HPI. ED EXAM, GENERAL - Physical Exam Exam: See Below (See dictation) Course - Vital Signs Last Recorded V/S: Last Vital Signs Temp 97.8 F 05/27/19 12:33 Pulse 101 H 05/27/19 12:33 Resp 16 05/27/19 12:33 BP 124/69 05/27/19 12:33 Pulse Ox 98 05/27/19 12:33 - Orders/Labs/Meds Orders: Active Orders 24 hr Category Date Time Status Communication Order [RC] STAT Care 05/27/19 13:58 Active CULTURE BLOOD [BC] Stat Lab 05/27/19 13:00 Received CULTURE BLOOD [BC] Stat Lab 05/27/19 13:16 Received CULTURE WOUND [RM] Stat Lab 05/27/19 12:50 Received UA RFX EMILEE AND CULT IF INDIC [URIN] Stat Lab 05/27/19 12:51 Ordered Sodium Chloride 0.9% [Saline Flush] Med 05/27/19 12:51 Active 10 ml FLUSH ASDIRECTED PRN Sodium Chloride 0.9% [Saline Flush] Med 05/27/19 12:51 Active 2.5 ml FLUSH ASDIRECTED PRN Blood Culture x2 Reflex Set [OM.PC] Stat Oth 05/27/19 12:51 Ordered Saline Lock Insert [OM.PC] Stat Oth 05/27/19 12:51 Ordered Medication Orders Sodium Chloride (Saline Flush) 10 ml FLUSH ASDIRECTED PRN PRN Reason: Keep Vein Open Sodium Chloride (Saline Flush) 2.5 ml FLUSH ASDIRECTED PRN PRN Reason: Keep Vein Open Labs: Laboratory Tests 05/27/19 05/27/19 Range/Units 13:00 13:00 WBC 5.66 (4.0-11.0) K/uL RBC 3.80 L (4.30-5.90) M/uL Hgb 11.5 L (12.0-16.0) g/dL Hct 36.2 (36.0-46.0) % MCV 95.3 (80.0-98.0) fL MCH 30.3 (27.0-32.0) pg MCHC 31.8 (31.0-37.0) g/dL RDW Std Deviation 49.9 (28.0-62.0) fl RDW Coeff of Carlitos 14 (11.0-15.0) % Plt Count 340 (150-400) K/uL MPV 9.90 (7.40-12.00) fL Neut % (Auto) 57.3 (48.0-80.0) % Lymph % (Auto) 28.6 (16.0-40.0) % [place] % (Auto) 8.8 (0.0-15.0) % Eos % (Auto) 4.2 (0.0-7.0) % Baso % (Auto) 1.1 (0.0-1.5) % Neut # (Auto) 3.2 (1.4-5.7) K/uL Lymph # (Auto) 1.6 (0.6-2.4) K/uL [place] # (Auto) 0.5 (0.0-0.8) K/uL Eos # (Auto) 0.2 (0.0-0.7) K/uL Baso # (Auto) 0.1 (0.0-0.1) K/uL Nucleated RBC % 0.0 /100WBC Nucleated RBCs # 0 K/uL Sodium 142 (136-145) mmol/L Potassium 4.7 (3.5-5.1) mmol/L Chloride 108 H (98-107) mmol/L Carbon Dioxide 25.7 (21.0-32.0) mmol/L BUN 27 H (7.0-18.0) mg/dL Creatinine 0.8 (0.6-1.0) mg/dL Est Cr Clr Drug Dosing 91.81 mL/min Estimated GFR (MDRD) > 60.0 ml/min Glucose 100 (74-106) mg/dL Calcium 8.7 (8.5-10.1) mg/dL Total Bilirubin 0.5 (0.2-1.0) mg/dL AST 20 (15-37) IU/L ALT 24 (14-63) IU/L Alkaline Phosphatase 113 (46-116) U/L Total Protein 6.6 (6.4-8.2) g/dL Albumin 3.2 L (3.4-5.0) g/dL Globulin 3.4 (2.6-4.0) g/dL Albumin/Globulin Ratio 0.9 (0.9-1.6) Meds: Medications Generic Name Dose Route Start Last Admin Trade Name Freq PRN Reason Stop Dose Admin Sodium Chloride 10 ml 05/27/19 12:51 Saline Flush FLUSH ASDIRECTED PRN Keep Vein Open Sodium Chloride 2.5 ml 05/27/19 12:51 Saline Flush FLUSH ASDIRECTED PRN Keep Vein Open Departure - Departure Time of Disposition: 13:57 Disposition: Home, Self-Care 01 Clinical Impression: Wound dehiscence, surgical Qualifiers: Encounter type: initial encounter Qualified Code(s): T81.31XA - Disruption of external operation (surgical) wound, not elsewhere classified, initial encounter - Discharge Information Prescriptions: Acetaminophen/HYDROcodone [Mobile 325-5 MG] 1 dose PO Q4H #20 tablet cephALEXin [Keflex] 500 mg PO BID 7 Days #14 cap Instructions: Wound Dehiscence, [id number] Referrals: Evelina Mack DO [Primary Care Provider] - Forms: ED Department Discharge Additional Instructions: The following information is given to patients seen in the emergency department who are being discharged to home. This information is to outline your options for follow-up care. We provide all patients seen in our emergency department with a follow-up referral. The need for follow-up, as well as the timing and circumstances, are variable depending upon the specifics of your emergency department visit. If you don't have a primary care physician on staff, we will provide you with a referral. We always advise you to contact your personal physician following an emergency department visit to inform them of the circumstance of the visit and for follow-up with them and/or the need for any referrals to a consulting specialist. The emergency department will also refer you to a specialist when appropriate. This referral assures that you have the opportunity for follow-up care with a specialist. All of these measure are taken in an effort to provide you with optimal care, which includes your follow-up. Under all circumstances we always encourage you to contact your private physician who remains a resource for coordinating your care. When calling for follow-up care, please make the office aware that this follow-up is from your recent emergency room visit. If for any reason you are refused follow-up, please contact the [facility] Emergency Department at and asked to speak to the emergency department charge nurse. [facility] [address] [place] [address] [id number] [facility] [address] [place] [id number] 1. Keep the wounds clean and dry. Wash gently 1-2 x daily with gentle soap and water. Keep the armpit dressings on during the day; may leave open at night over the next few days. You will need to do "wet to dry" dressings to the low abdominal open wound twice daily until told otherwise by Dr Alberts. Continue to monitor the site for improvement. 2. Tylenol and/or Ibuprofen as needed for pain. 3. Dr Alberts's office should be calling you to follow up; otherwise keep your appointment for June 13. 4. Return to the ED as needed as discussed. Sepsis Event Note - Evaluation Sepsis Screening Result: No Definite Risk - Focused Exam Vital Signs: Vital Signs Temp Pulse Resp BP Pulse Ox 05/27/19 12:33 97.8 F 101 H 16 124/69 98 Date Exam was Performed: 05/27/19 Time Exam was Performed: 14:06 - My Orders Last 24 Hours: My Active Orders 05/27/19 12:50 CULTURE WOUND [RM] Stat 05/27/19 12:51 UA RFX EMILEE AND CULT IF INDIC [URIN] Stat Sodium Chloride 0.9% [Saline Flush] 10 ml FLUSH ASDIRECTED PRN Sodium Chloride 0.9% [Saline Flush] 2.5 ml FLUSH ASDIRECTED PRN Blood Culture x2 Reflex Set [OM.PC] Stat Saline Lock Insert [OM.PC] Stat 05/27/19 13:00 CULTURE BLOOD [BC] Stat 05/27/19 13:16 CULTURE BLOOD [BC] Stat 05/27/19 13:58 Communication Order [RC] STAT - Assessment/Plan Last 24 Hours: My Active Orders 05/27/19 12:50 CULTURE WOUND [RM] Stat 05/27/19 12:51 UA RFX EMILEE AND CULT IF INDIC [URIN] Stat Sodium Chloride 0.9% [Saline Flush] 10 ml FLUSH ASDIRECTED PRN Sodium Chloride 0.9% [Saline Flush] 2.5 ml FLUSH ASDIRECTED PRN Blood Culture x2 Reflex Set [OM.PC] Stat Saline Lock Insert [OM.PC] Stat 05/27/19 13:00 CULTURE BLOOD [BC] Stat 05/27/19 13:16 CULTURE BLOOD [BC] Stat 05/27/19 13:58 Communication Order [RC] STAT
[2019-05-27 13:36] LABS: BLOOD UREA NITROGEN,BUN 27 mg/dL (7.0-18.0); CARBON DIOXIDE,CO2 25.7 mmol/L (21.0-32.0); CHLORIDE,CL 108 mmol/L (98-107); GLUCOSE RANDOM 100 mg/dL (74-106); POTASSIUM,K 4.7 mmol/L (3.5-5.1); SODIUM,NA 142 mmol/L (136-145)
[2019-05-27 18:31] VITALS: BP 115/57; PULSE 82
== END 2019-05-27 14:58 | disposition home or self-care (01) ==
LOC: MW.ED 12:21
DX: T81.31XA Disruption of external operation (surgical) wound, not elsewhere classified, initial encounter (principal); E03.9 Hypothyroidism, unspecified; Z79.899 Other long term (current) drug therapy; Z88.2 Allergy status to sulfonamides
CPT/HCPCS: 36415; 80053; 85025; 87040; 87070; 87077; 87186; 99283